=== PATIENT | male | born 1960 | race Caucasian/White ===

== ENCOUNTER 2017-04-13 22:43 | Inpatient (IN) | payer BC ==
[~2017-04-13] VITALS: Ht 195.6 cm; Wt 121.3 kg
[~2017-04-13 22:43] MED LIST: INSLISPI; METF-372
[2017-04-13 23:26] LABS: Eosinophils # (auto) 0 uL; Lymphocytes # (auto) 0.8 uL; Monocytes # (auto) 0.3 uL
[2017-04-13 23:28] LABS: Basophils # (auto) 0.1 uL; Basophils % (auto) 0.6 % (0.0-2.0); Eosinophils % (auto) 0.1 % (0.0-7.0); Hemoglobin 12.7 g/dL (13.5-17.5); Lymphocytes % (auto) 7.5 % (10.0-50.0); Mean Corpuscular Hemoglobin 26.6 pg (28.0-32.0); Mean Corpuscular Hgb Conc. 32.4 g/dL (32.0-36.0); Mean Corpuscular Volume 81.8 fL (80.0-100.0); Monocytes % (auto) 3.4 % (0.0-12.0); Neutrophils % (auto) 88.4 % (37.0-80.0); Nucleated Red Blood Cells % 0.1 %; Platelet Count (auto) 372 10^3/uL (140-450); Red Blood Cells 4.77 10^6/uL (4.5-5.90); Red Cell Distribution Width 14.9 % (11.8-14.3); White Blood Cell 10.1 10^3/uL (4.4-10.8)
[2017-04-13 23:41] LABS: INR 0.96 (0.9-1.15); Partial Thromboplastin Time 25.2 sec (22.64-33.71); Prothrombin Time 10.5 sec (9.37-12.3)
[2017-04-13 23:52] LABS: Acetaminophen < 2.0 ug/mL (10-30); Salicylate < 1.7 mg/dL (2.8-20.0)
[2017-04-14 00:02] LABS: Alanine Aminotransferase 28 U/L (16-61); Albumin 3.5 g/dL (3.4-5.0); Alkaline Phosphatase 78 U/L (45-117); Anion Gap 10 (5-15); Aspartate Aminotransferase 31 U/L (15-37); BUN/Creatinine Ratio 13.8; Bilirubin, Total 0.6 mg/dL (0.2-1.0); Blood Alcohol < 3.0 mg/dL (0-5); Blood Urea Nitrogen 15 mg/dL (7-18); Calcium 8.5 mg/dL (8.5-10.1); Carbon Dioxide 23 mmol/L (21-32); Chloride 106 mmol/L (98-107); GFR African American 89 mL/min; GFR Non-African American 74 mL/min; Glucose 216 mg/dL (74-106); Potassium 4.4 mmol/L (3.5-5.1); Sodium 139 mmol/L (136-145); Total Protein 7.3 g/dL (6.4-8.2)
[2017-04-14 00:17] LABS: Urine Bacteria FEW /hpf (None Seen); Urine Blood Negative /uL (Negative); Urine Hyaline Cast FEW /lpf (0 - 2); Urine Mucus FEW (None Seen); Urine Specific Gravity 1.028 (1.001-1.035); Urine WBC 1 /hpf (0 - 3)
[2017-04-14 00:32] LABS: Alcohol, Urine < 3.0 mg/dL (0-5); Amphetamine Screen, Urine NEGATIVE (NEGATIVE); Barbiturate Scree,Urine NEGATIVE (NEGATIVE); Benzodiazephine Screen, Urine NEGATIVE (NEGATIVE); Cannabinoid Screen, Urine NEGATIVE (NEGATIVE); Cocaine Screen, Urine NEGATIVE (NEGATIVE); Opiate Scree,Urine NEGATIVE (NEGATIVE); Phencyclidine Screen, Urine NEGATIVE (NEGATIVE)
[2017-04-14] MEDS ORDERED: SODIUM CHLORIDE 0.9% 1,000 ML IV ONE (01:15)
[2017-04-14] MEDS ORDERED: DEXTROSE (50%) 50ML SYRG IV PRN (03:30)
[2017-04-14 04:54] LABS: Basophils # (auto) 0 uL; Eosinophils # (auto) 0 uL; Eosinophils % (auto) 0.1 % (0.0-7.0); Lymphocytes # (auto) 1.2 uL; Lymphocytes % (auto) 14.6 % (10.0-50.0); Mean Corpuscular Volume 81.3 fL (80.0-100.0); Monocytes # (auto) 0.7 uL; Neutrophils % (auto) 76.6 % (37.0-80.0)
[2017-04-14 04:56] LABS: Basophils % (auto) 0.3 % (0.0-2.0); Hematocrit 36.9 % (41.0-53.0); Hemoglobin 12.2 g/dL (13.5-17.5); Mean Corpuscular Hemoglobin 26.8 pg (28.0-32.0); Monocytes % (auto) 8.4 % (0.0-12.0); Neutrophils # (auto) 6.2 uL; Platelet Count (auto) 351 10^3/uL (140-450); Red Blood Cells 4.54 10^6/uL (4.5-5.90); Red Cell Distribution Width 14.7 % (11.8-14.3); White Blood Cell 8.1 10^3/uL (4.4-10.8)
[2017-04-14 05:41] LABS: BUN/Creatinine Ratio 12.7; Calcium 8.5 mg/dL (8.5-10.1); Potassium 3.9 mmol/L (3.5-5.1)
[2017-04-14] MEDS: ACCU-CHEK COMFORT CURVE STRIP VI SCH ×4 (07:04→21:17)
[2017-04-14] MEDS: InsuLIN REG 1unit/0.01ml Soln (100units/ml) SC SCH ×3 (07:08→17:00)
[2017-04-14] MEDS: metFORMIN HYDROCHLORIDE 500 MG TAB PO SCH ×2 (07:10→17:37)
[2017-04-14] MEDS: LOSARTAN POTASSIUM 25 MG TAB PO SCH (10:34)
[2017-04-14 13:20] VITALS: BP 121/76
[2017-04-14] MEDS ORDERED: LORazepam 2MG/ML-1ML VIAL IV ONE (14:30)
[2017-04-14] MEDS ORDERED: ASPirin-EC 81 mg tab PO ONE (14:30)
[2017-04-14] MEDS ORDERED: ENOXAPARIN SOD 40 MG/0.4 ML SYRINGE SC ONE (14:30)
[2017-04-14] MEDS ORDERED: NITROGLYCERIN 0.4 MG SL TAB SL PRN (14:30)
[2017-04-14] MEDS ORDERED: PANTOPRAZOLE 40 MG TAB PO ONE (14:30)
[2017-04-14] MEDS ORDERED: MORPHINE SULF INJ 2 MG/ML SYRINGE 1ML IV PRN (14:30)
[2017-04-14] MEDS ORDERED: LOSA25TA9 PO (15:05)
[2017-04-14] MEDS ORDERED: INSLANTI SC (15:05)
[2017-04-14] MEDS ORDERED: LORazepam 2MG/ML-1ML VIAL IV PRN (15:15)
[2017-04-14 15:38] LABS: Cholesterol 142 mg/dL (< 200); HDL Cholesterol 58 mg/dL (40-59); LDL Cholesterol 79 mg/dL (< 100); Triglycerides 54 mg/dL (< 150)
[2017-04-14 17:06] VITALS: BP 116/58
[2017-04-14] MEDS ORDERED: TAMSULOSIN HYDROCHLORIDE 0.4 MG CAP PO SCH (18:00)
[2017-04-14] MEDS: SODIUM CHLOR 0.9% PF (SALINE LOCK) 10ML VIAL IV SCH (21:17)
[2017-04-14] MEDS ORDERED: InsuLIN REG 1unit/0.01ml Soln (100units/ml) SC SCH (22:00)
[2017-04-14] MEDS ORDERED: ATORVASTATIN 20 MG TAB PO SCH (22:00)
[2017-04-14 22:11] VITALS: BP 112/65
[2017-04-15 05:22] VITALS: BP 119/71
[2017-04-15 05:37] LABS: Basophils # (auto) 0 uL; Eosinophils # (auto) 0.2 uL; Hemoglobin 12.1 g/dL (13.5-17.5); Lymphocytes # (auto) 1.5 uL; Monocytes # (auto) 0.6 uL; Monocytes % (auto) 12.3 % (0.0-12.0); Nucleated Red Blood Cells % 0.1 %
[2017-04-15 05:40] LABS: Basophils % (auto) 0.6 % (0.0-2.0); Eosinophils % (auto) 3.6 % (0.0-7.0); Mean Corpuscular Hemoglobin 26.9 pg (28.0-32.0); Mean Corpuscular Hgb Conc. 32.7 g/dL (32.0-36.0); Mean Corpuscular Volume 82.5 fL (80.0-100.0); Neutrophils # (auto) 2.9 uL; Neutrophils % (auto) 55.5 % (37.0-80.0); Platelet Count (auto) 332 10^3/uL (140-450); Red Blood Cells 4.49 10^6/uL (4.5-5.90); Red Cell Distribution Width 14.7 % (11.8-14.3); White Blood Cell 5.2 10^3/uL (4.4-10.8)
[2017-04-15] MEDS: SODIUM CHLOR 0.9% PF (SALINE LOCK) 10ML VIAL IV SCH ×2 (06:00→15:32)
[2017-04-15 06:01] LABS: Albumin 3.1 g/dL (3.4-5.0); BUN/Creatinine Ratio 15.2; Calcium 8.4 mg/dL (8.5-10.1)
[2017-04-15 06:04] LABS: Bilirubin, Total 0.5 mg/dL (0.2-1.0); Total Protein 6.2 g/dL (6.4-8.2)
[2017-04-15] MEDS: ACCU-CHEK COMFORT CURVE STRIP VI SCH ×2 (07:09→12:04)
[2017-04-15] MEDS: InsuLIN REG 1unit/0.01ml Soln (100units/ml) SC SCH ×2 (07:09→11:30)
[2017-04-15] MEDS: metFORMIN HYDROCHLORIDE 500 MG TAB PO SCH (07:09)
[2017-04-15 09:00] VITALS: BP 116/72
[2017-04-15] MEDS ORDERED: ASPirin-EC 81 mg tab PO SCH (10:00)
[2017-04-15] MEDS ORDERED: PANTOPRAZOLE 40 MG TAB PO SCH (10:00)
[2017-04-15] MEDS ORDERED: ENOXAPARIN SOD 40 MG/0.4 ML SYRINGE SC SCH (10:00)
[2017-04-15] MEDS: LOSARTAN POTASSIUM 25 MG TAB PO SCH (10:00)
[2017-04-15] MEDS ORDERED: INSULIN LANTUS (GLARGINE) 1 /0.01ml (100units/ml) SC ONE (10:30)
[2017-04-15 13:00] VITALS: BP 141/79
[2017-04-15] MEDS ORDERED: ASP81EC PO (15:12)
[2017-04-15] MEDS ORDERED: ATOR20TA50 PO (15:12)
[2017-04-15] MEDS ORDERED: INSLANTI SC (15:12)
[2017-04-15 17:00] VITALS: BP 143/81
[2017-04-16] MEDS ORDERED: INSULIN LANTUS (GLARGINE) 1 /0.01ml (100units/ml) SC SCH (07:00)
== END 2017-04-15 18:15 | disposition home or self-care (01) | DRG 637 ==
LOC: ER 22:46 → OVERFLOW 22:47 → WEST WING 04-14 13:26 → TELE-WESTW 04-14 23:21
PROVIDERS: ADMIT Nurse Practitioner Family; ATTEND Internal Medicine
DX: E11.649 Type 2 diabetes mellitus with hypoglycemia without coma (principal); G93.41 Metabolic encephalopathy; E11.65 Type 2 diabetes mellitus with hyperglycemia; R56.9 Unspecified convulsions; D64.9 Anemia, unspecified; E66.9 Obesity, unspecified; E78.5 Hyperlipidemia, unspecified; I10 Essential (primary) hypertension; G45.9 Transient cerebral ischemic attack, unspecified; Z53.20 Procedure and treatment not carried out because of patient's decision for unspecified reasons; Z68.31 Body mass index [BMI] 31.0-31.9, adult; Z87.820 Personal history of traumatic brain injury; Z83.3 Family history of diabetes mellitus; Z79.4 Long term (current) use of insulin
CPT/HCPCS: 36415; 70450; 70551; 71045; 80048; 80053; 80061; 80307; 80320; 80329; 81001; 82607; 82962; 83036; 83735; 84484; 85025; 85610; 85730; 93005; 93306; 93886; 95819; 96360; 96372; J1815

== ENCOUNTER 2018-01-20 14:51 | Emergency (ER) | payer BC ==
[~2018-01-20] VITALS: Ht 195.6 cm; Wt 124.7 kg
[~2018-01-20 14:51] MED LIST changes: +ASP81EC PO; +ATOR20TA50 PO; +INSLANTI SC; -INSLISPI; +LOSA25TA40 PO
[2018-01-20 16:43] VITALS: BP 127/81
== END 2018-01-20 17:14 | disposition home or self-care (01) ==
LOC: ER 14:52
DX: K59.00 Constipation, unspecified (principal); E11.9 Type 2 diabetes mellitus without complications; E78.5 Hyperlipidemia, unspecified; I10 Essential (primary) hypertension
CPT/HCPCS: 74018

== ENCOUNTER 2018-08-06 19:51 | Emergency (ER) | payer BC ==
[~2018-08-06] VITALS: Ht 195.6 cm; Wt 117.9 kg
[2018-08-06] MEDS ORDERED: SODIUM CHLORIDE 0.9% 1,000 ML IVB ONE (20:36)
[2018-08-06] MEDS ORDERED: DEXTROSE 50% SYRINGE 50 ML IV ONE (20:38)
[2018-08-06 20:48] LABS: Basophils # (auto) 0.1 uL; Eosinophils # (auto) 0.1 uL; Lymphocytes % (auto) 12.8 % (10.0-50.0)
[2018-08-06 20:50] LABS: Basophils % (auto) 0.7 % (0.0-2.0); Eosinophils % (auto) 1.5 % (0.0-7.0); Hematocrit 37.9 % (41.0-53.0); Hemoglobin 11.3 g/dL (13.5-17.5); Mean Corpuscular Hemoglobin 21.3 pg (28.0-32.0); Mean Corpuscular Hgb Conc. 29.9 g/dL (32.0-36.0); Mean Corpuscular Volume 71.4 fL (80.0-100.0); Monocytes # (auto) 0.9 uL; Neutrophils # (auto) 5.7 uL; Platelet Count (auto) 363 10^3/uL (140-450); Red Blood Cells 5.31 10^6/uL (4.5-5.90); White Blood Cell 7.7 10^3/uL (4.4-10.8)
[2018-08-06 20:59] LABS: Red Cell Distribution Width 22.2 % (11.8-14.3)
[2018-08-06 21:05] VITALS: BP 156/85
[2018-08-06 21:06] LABS: Alanine Aminotransferase 53 U/L (16-61); Albumin 3.6 g/dL (3.4-5.0); Anion Gap 9 (5-15); Aspartate Aminotransferase 35 U/L (15-37); BUN/Creatinine Ratio 24.1; Blood Urea Nitrogen 41 mg/dL (7-18); Calcium 8.2 mg/dL (8.5-10.1); Carbon Dioxide 29 mmol/L (21-32); Chloride 102 mmol/L (98-107); GFR African American 53 mL/min; GFR Non-African American 44 mL/min; Glucose 66 mg/dL (74-106); Potassium 3.1 mmol/L (3.5-5.1); Sodium 140 mmol/L (136-145)
[2018-08-06 21:13] LABS: Alkaline Phosphatase 173 U/L (45-117); Bilirubin, Total 0.5 mg/dL (0.2-1.0); Total Protein 7.2 g/dL (6.4-8.2)
[2018-08-06 21:18] LABS: INR 1.36 (0.9-1.15); Partial Thromboplastin Time 27.6 sec (23.64-32.05)
[2018-08-06 21:27] LABS: Urine Bacteria NONE SEEN /hpf (None Seen); Urine Blood Negative /uL (Negative); Urine Specific Gravity 1.012 (1.001-1.035); Urine WBC <1 /hpf (0 - 3)
[2018-08-06 21:28] LABS: Alcohol, Urine < 3.0 mg/dL (0-5); Amphetamine Screen, Urine NEGATIVE (NEGATIVE); Barbiturate Scree,Urine NEGATIVE (NEGATIVE); Benzodiazephine Screen, Urine NEGATIVE (NEGATIVE); Cannabinoid Screen, Urine NEGATIVE (NEGATIVE); Cocaine Screen, Urine NEGATIVE (NEGATIVE); Opiate Scree,Urine NEGATIVE (NEGATIVE); Phencyclidine Screen, Urine NEGATIVE (NEGATIVE)
== END 2018-08-06 22:19 | disposition home or self-care (01) ==
LOC: ER 19:51 → EDBD 19:51 → ER 22:19
DX: K80.20 Calculus of gallbladder without cholecystitis without obstruction (principal); N39.0 Urinary tract infection, site not specified; J45.909 Unspecified asthma, uncomplicated
CPT/HCPCS: 36415; 80053; 80307; 80320; 81001; 82962; 83735; 84484; 85025; 85610; 85730; 93005; 94761; 99284; J7030; J7042; 96360

== ENCOUNTER 2021-10-22 19:47 | Emergency (ER) | payer BC ==
[~2021-10-22] VITALS: Ht 195.6 cm; Wt 122.7 kg
[~2021-10-22 19:47] MED LIST changes: -ASP81EC PO; +ASPI-394 PO; +LOSA25TA38 PO; -LOSA25TA40 PO
[2021-10-22 21:39] VITALS: BP 136/87
== END 2021-10-22 23:46 | disposition home or self-care (01) ==
LOC: ER 19:54
DX: T18.2XXA Foreign body in stomach, initial encounter (principal); I10 Essential (primary) hypertension; E11.9 Type 2 diabetes mellitus without complications; E78.5 Hyperlipidemia, unspecified; Z86.73 Personal history of transient ischemic attack (TIA), and cerebral infarction without residual deficits; Z95.1 Presence of aortocoronary bypass graft; Z79.4 Long term (current) use of insulin; X58.XXXA Exposure to other specified factors, initial encounter; Y93.89 Activity, other specified; Y92.89 Other specified places as the place of occurrence of the external cause; Y99.8 Other external cause status
CPT/HCPCS: 74018; 82962

== ENCOUNTER 2021-12-02 13:43 | Inpatient (IN) | payer BC ==
[~2021-12-02] VITALS: Ht 195.6 cm; Wt 120.3 kg
[2021-12-02 14:15] VITALS: BP 138/75
[2021-12-02 14:30] LABS: Hemoglobin 12.8 g/dL (13.5-17.5); Red Blood Cells 4.38 10^6/uL (4.5-5.90)
[2021-12-02 14:35] LABS: Hematocrit 39.7 % (41.0-53.0); Mean Corpuscular Hemoglobin 29.1 pg (28.0-32.0); Mean Corpuscular Hgb Conc. 32.2 g/dL (32.0-36.0); Mean Corpuscular Volume 90.6 fL (80.0-100.0); Red Cell Distribution Width 15.4 % (11.8-14.3)
[2021-12-02 14:36] LABS: Basophils % (manual) 0 (0.0-2.0); Blast Cells 0; Metamyelocytes % 0; Myelocytes % 0; Promyelocytes % 0; Reactive Lymphocytes 0
[2021-12-02] MEDS ORDERED: FUROSEMIDE 20 MG/2 ML VIAL IV ONE (14:45)
[2021-12-02 15:11] LABS: Band Neutrophils % (manual) 6; Eosinophils % (manual) 4 (0-7); Lymphocytes % (manual) 22 (10.0-50.0); Monocytes % (manual) 10 (0-12)
[2021-12-02 15:16] LABS: Sodium 140 mmol/L (136-145)
[2021-12-02 15:17] LABS: Alanine Aminotransferase 47 U/L (16-61); Albumin 3.2 g/dL (3.4-5.0); Alkaline Phosphatase 963 U/L (45-117); Anion Gap 9 (5-15); Aspartate Aminotransferase 62 U/L (15-37); BUN/Creatinine Ratio 14.9; Bilirubin, Total 1.7 mg/dL (0.2-1.0); Blood Urea Nitrogen 21 mg/dL (7-18); Calcium 8.8 mg/dL (8.5-10.1); Carbon Dioxide 29 mmol/L (21-32); Chloride 102 mmol/L (98-107); GFR African American 66 mL/min; GFR Non-African American 54 mL/min; Glucose 133 mg/dL (74-106); Potassium 4.1 mmol/L (3.5-5.1); Total Protein 6.9 g/dL (6.4-8.2)
[2021-12-02] MEDS ORDERED: FURO40TA4 PO (18:12)
[2021-12-02] MEDS ORDERED: WARF3TAB22 PO (18:12)
[2021-12-02] MEDS ORDERED: POTA-264 PO (18:12)
[2021-12-02] MEDS ORDERED: SODIUM CHLORIDE 0.9% 1,000 ML IV SCH (18:15)
[2021-12-02] MEDS ORDERED: NITROGLYCERIN 0.4 MG SL TAB SL PRN (18:15)
[2021-12-02] MEDS ORDERED: DEXTROSE (50%) 50ML SYRG IV PRN (18:15)
[2021-12-02] MEDS ORDERED: MORPHINE SULFATE INJ 2 MG/ml SYRG IV PRN (18:15)
[2021-12-02 18:39] LABS: INR 6.23 (0.9-1.15)
[2021-12-02] MEDS ORDERED: phytonadione 10 MG in SODIUM CHL 0.9% 50 ML IV ONE (19:00)
[2021-12-02] MEDS ORDERED: ATORVASTATIN 20 MG TAB PO SCH (22:00)
[2021-12-02] MEDS ORDERED: ACCU-CHEK COMFORT CURVE STRIP VI SCH (22:00)
[2021-12-02] MEDS ORDERED: InsuLIN REG 1unit/0.01ml Soln (100units/ml) SC SCH (22:00)
[2021-12-03] MEDS ORDERED: ASPirin-EC 81 mg tab PO SCH (10:00)
[2021-12-03] MEDS ORDERED: ENOXAPARIN SOD 40 MG/0.4 ML SYRINGE SC SCH (10:00)
== END 2021-12-02 20:53 | disposition left against medical advice (07) | DRG 291 ==
LOC: ER 13:46 → TELE 18:07
PROVIDERS: ADMIT Registered Nurse; ATTEND Registered Nurse
DX: I11.0 Hypertensive heart disease with heart failure (principal); I50.43 Acute on chronic combined systolic (congestive) and diastolic (congestive) heart failure; N17.0 Acute kidney failure with tubular necrosis; D68.59 Other primary thrombophilia; E11.9 Type 2 diabetes mellitus without complications; E66.01 Morbid (severe) obesity due to excess calories; E78.5 Hyperlipidemia, unspecified; I25.10 Atherosclerotic heart disease of native coronary artery without angina pectoris; I48.91 Unspecified atrial fibrillation; I50.9 Heart failure, unspecified; Z53.29 Procedure and treatment not carried out because of patient's decision for other reasons; Z20.822 Contact with and (suspected) exposure to COVID-19; Z95.1 Presence of aortocoronary bypass graft; Z68.31 Body mass index [BMI] 31.0-31.9, adult
CPT/HCPCS: 36415; 71045; 80053; 83880; 84484; 85007; 85027; 85610; 87426; G0378; J3430

== ENCOUNTER 2022-01-31 09:29 | Inpatient (IN) | payer BC, MEDICAID ==
[~2022-01-31] VITALS: Ht 195.6 cm; Wt 122.7 kg
[2022-01-31] VITALS (8 sets, daily range): BP systolic 90–113; BP diastolic 14–82
[~2022-01-31 09:29] MED LIST changes: +FURO40TA4 PO; +POTA-264 PO; +WARF3TAB22 PO
[2022-01-31] MEDS ORDERED: MIDAZOLAM DRIP 50 mg/50mL 50 ML IV ONE (09:34)
[2022-01-31] MEDS ORDERED: EPINEPHrine HCL 250 ML IV ONE (09:34)
[2022-01-31] MEDS ORDERED: SODIUM BICARBONATE 8.4% INJ 50ML SYRINGE ONE ×3 (09:40→12:22)
[2022-01-31] MEDS: EPINEPHrine HCL 250 ML IV SCH (09:45)
[2022-01-31] MEDS ORDERED: PROPOFOL 100 ML IV SCH (09:45)
[2022-01-31] MEDS ORDERED: cefTRIAXone 1GM/50ML D5W 50 ML IV ONE (10:00)
[2022-01-31] MEDS ORDERED: SODIUM BICARBONATE 8.4 % INJ 50ML VIAL IV ONE (10:00)
[2022-01-31] MEDS ORDERED: AZITHROMYCIN 500MG/ 250ML 250 ML IV ONE (10:00)
[2022-01-31] MEDS ORDERED: IOHEXOL 350 MG/ML 100ML IJ ONE (10:07)
[2022-01-31] MEDS ORDERED: AMIODARONE 450mg/250ml AE 250 ML IV SCH (10:15)
[2022-01-31 10:18] LABS: Eosinophils # (auto) 0 10 ^3/uL (0-0.8); Hemoglobin 12.1 g/dL (13.5-17.5); Monocytes # (auto) 0.4 10 ^3/uL (0-1.3); Red Blood Cells 3.91 10^6/uL (4.5-5.90)
[2022-01-31 10:21] LABS: Basophils # (auto) 0.1 10 ^3/uL (0-0.2); Basophils % (auto) 0.7 % (0.0-2.0); Hematocrit 40.3 % (41.0-53.0); Lymphocytes # (auto) 2.7 10 ^3/uL (0.4-5.4); Lymphocytes % (auto) 21.3 % (10.0-50.0); Mean Corpuscular Hemoglobin 30.9 pg (28.0-32.0); Mean Corpuscular Volume 103.2 fL (80.0-100.0); Monocytes % (auto) 3.2 % (0.0-12.0); Neutrophils # (auto) 9.6 10 ^3/uL (1.6-8.6); Neutrophils % (auto) 74.8 % (37.0-80.0); Nucleated Red Blood Cells % 0.8 %; White Blood Cell 12.8 10^3/uL (4.4-10.8)
[2022-01-31 10:28] LABS: Red Cell Distribution Width 21.8 % (11.8-14.3)
[2022-01-31 10:29] LABS: Urine Bacteria FEW /hpf (None Seen); Urine Blood Negative /uL (Negative); Urine Hyaline Cast MANY /lpf (0 - 2); Urine Mucus FEW (None Seen); Urine Specific Gravity 1.016 (1.001-1.035); Urine WBC 6 /hpf (0 - 3)
[2022-01-31 10:30] LABS: Albumin 2.5 g/dL (3.4-5.0); Calcium 7.6 mg/dL (8.5-10.1); Magnesium 3.3 mg/dL (1.6-2.6)
[2022-01-31 10:39] LABS: Total Protein 5.3 g/dL (6.4-8.2)
[2022-01-31 10:40] LABS: Lactic Acid w/Reflex 12.1 mmol/L (0.4-2.0)
[2022-01-31 10:46] LABS: Partial Thromboplastin Time 35.3 sec (24.6-33.4)
[2022-01-31 10:49] LABS: Potassium 7.3 mmol/L (3.5-5.1)
[2022-01-31 10:53] LABS: INR 5.74 (0.9-1.15)
[2022-01-31 10:56] LABS: Barbiturate Scree,Urine NEGATIVE (NEGATIVE); Benzodiazephine Screen, Urine NEGATIVE (NEGATIVE); Cannabinoid Screen, Urine POSITIVE (NEGATIVE); Cocaine Screen, Urine NEGATIVE (NEGATIVE); Phencyclidine Screen, Urine NEGATIVE (NEGATIVE)
[2022-01-31 11:03] LABS: Amphetamine Screen, Urine NEGATIVE (NEGATIVE); Opiate Scree,Urine NEGATIVE (NEGATIVE)
[2022-01-31] MEDS ORDERED: NOREPINEPHRINE 8 MG/250ML KIT 250 ML IV ONE (11:32)
[2022-01-31] MEDS: NOREPINEPHRINE 8 MG/250ML KIT 250 ML IV SCH ×2 (11:34→20:39)
[2022-01-31] MEDS: MIDAZOLAM DRIP 50 mg/50mL 50 ML IV SCH ×2 (11:56→17:32)
[2022-01-31] MEDS ORDERED: EPINEPHrine HCL 1 MG/10 ML SYRG IV ONE (12:00)
[2022-01-31] MEDS ORDERED: SODIUM ZIRCONIUM CYCL 10 GM PAK PO ONE (14:00)
[2022-01-31] MEDS ORDERED: ALBUTEROL SULF 2.5 MG/0.5ML(0.5%) NEB SOLN NEB ONE (14:00)
[2022-01-31] MEDS ORDERED: SODIUM BICARBONATE 8.4% INJ 50ML SYRINGE IV ONE (14:00)
[2022-01-31] MEDS ORDERED: DEXTROSE (50%) 50ML SYRG IV ONE (14:00)
[2022-01-31] MEDS ORDERED: FUROSEMIDE 20 MG/2 ML VIAL IV ONE (14:00)
[2022-01-31] MEDS ORDERED: CALCIUM GLUC 1,000mg/50ml-NS 50 ML IV ONE (14:00)
[2022-01-31] MEDS ORDERED: InsuLIN REG 1unit/0.01ml Soln (100units/ml) IV ONE (14:00)
[2022-01-31] MEDS: SODIUM BICARBONATE 50ML VIAL 50 ML in SOD CHL 0.45% 1,000 ML IV SCH (16:45)
[2022-01-31 17:05] LABS: Protein, Urine 50.8 mg/dL (0.0-11.9)
[2022-01-31] MEDS ORDERED: fentaNYL Drip 2500mCg/250mlNS 250 ML IV SCH (19:45)
[2022-01-31] MEDS ORDERED: AMIODARONE 450mg/250ml AE 250 ML IV ONE (20:20)
[2022-02-01 00:35] VITALS: BP 86/19
[2022-02-01] MEDS: EPINEPHrine HCL 250 ML IV SCH (01:54)
[2022-02-01 02:28] VITALS: BP 91/18
[2022-02-01 04:16] VITALS: BP 77/16
[2022-02-01 06:00] VITALS: BP 59/13
[2022-02-01] MEDS: SODIUM BICARBONATE 50ML VIAL 50 ML in SOD CHL 0.45% 1,000 ML IV SCH (07:01)
[2022-02-01] MEDS ORDERED: DOPamine 1600MCG/ML D5W 250 ML IV SCH (12:45)
== END 2022-02-01 06:00 | DRG 208 ==
LOC: EDBD 09:29 → ER 09:29 → EDSEX 09:29 → TELE 15:14
PROVIDERS: ADMIT Nurse Practitioner Family; ATTEND Internal Medicine Pulmonary Disease
PROC: 5A1935Z Respiratory Ventilation, Less than 24 Consecutive Hours (ICD-10-PCS; principal; 2022-01-31)
PROC: 0BH17EZ Insertion of Endotracheal Airway into Trachea, Via Natural or Artificial Opening (ICD-10-PCS; 2022-01-31)
DX: J96.01 Acute respiratory failure with hypoxia (principal); N17.0 Acute kidney failure with tubular necrosis; C85.90 Non-Hodgkin lymphoma, unspecified, unspecified site; I13.0 Hypertensive heart and chronic kidney disease with heart failure and stage 1 through stage 4 chronic kidney disease, or unspecified chronic kidney disease; Z20.822 Contact with and (suspected) exposure to COVID-19; E11.22 Type 2 diabetes mellitus with diabetic chronic kidney disease; E11.65 Type 2 diabetes mellitus with hyperglycemia; E66.9 Obesity, unspecified; I50.9 Heart failure, unspecified; Z68.32 Body mass index [BMI] 32.0-32.9, adult; E78.5 Hyperlipidemia, unspecified; E87.5 Hyperkalemia; E88.09 Other disorders of plasma-protein metabolism, not elsewhere classified; I25.10 Atherosclerotic heart disease of native coronary artery without angina pectoris; I46.9 Cardiac arrest, cause unspecified; I48.91 Unspecified atrial fibrillation; N18.9 Chronic kidney disease, unspecified; R79.1 Abnormal coagulation profile; Z51.5 Encounter for palliative care; Z92.21 Personal history of antineoplastic chemotherapy; Z95.1 Presence of aortocoronary bypass graft; Z95.2 Presence of prosthetic heart valve; I25.2 Old myocardial infarction
CPT/HCPCS: 31500; 36415; 36556; 36600; 71045; 76775; 80053; 80307; 81001; 82570; 82805; 83605; 83735; 83970; 84100; 84132; 84156; 84300; 84484; 85025; 85610; 85730; 87040; 87070; 87077; 87186; 87205; 87426; 92950; 93005; 94002; 94644; 96365; 96367; 96375; 99291; G0378; J0171; J0696; J1815; J2250